=== PATIENT | male | born 1995 | race African-American/Black ===

== ENCOUNTER 2017-03-23 12:33 | Emergency (ER) | payer BC | END 2017-03-23 16:05 | disposition home or self-care (01) | LOC: SED 12:33 | DX: R51 Headache (principal); R11.0 Nausea; H53.8 Other visual disturbances | CPT/HCPCS: 96361; 96374; 96375; 99284; J0780; J1200 ==

== ENCOUNTER 2017-03-25 15:19 | Observation (INO) | payer BC ==
--- NOTE | ~2017-03-25 | CT23 ---
[facility] A Service of [facility] RADIOLOGY TEXT RESULTS PATIENT: SEDRICK PEARCE LOCATION: [place] [address] : [birth year] UNIT #: [id number] AGE: [address]: Zander Carrillo MD SEX: M ORDER DR: [id number] [place] [address] [place], [place] [address] [id number] I MR#: [id number] Acc #: [id number] NAME: SEDRICK PEARCE. : 1995 SEX: M STUDY DATE/TIME: 03/25/2017 22:44 UNIT: [facility] ROOM: [facility] STUDY DESCRIPTION: CT Angio Neck Attending Physician: Zander Carrillo M.D. Ordering Physician: Rajesh Andino D.O. Primary Care Physician: Primary Care Physician No MEDICAL IMAGING REPORT This report is preliminary unless electronic signature is present EXAM CT angio neck INDICATIONS Blurred vision for 3 days. Headache. FINDINGS Please see CT ANGIO HEAD report for combined text results. Dictated by... Yuan Miranda M.D. THIS IS AN ELECTRONICALLY VERIFIED REPORT Yuan Miranda M.D. at 03/26/2017 1:06 AM GILES/francisco TD: 03/26/2017 00:48 JOB #: [id number] MEDICAL IMAGING REPORT Page 1 of 1 COPY
--- NOTE | ~2017-03-25 | MR17 ---
[facility] A Service of [facility] & [facility] RADIOLOGY TEXT RESULTS PATIENT: SEDRICK PEARCE LOCATION: [facility] [id number] : [birth year] UNIT #: [id number] AGE: [address]: Jenelle Tapia MD SEX: M ORDER DR: [id number] [facility] [address] [place], [place] [address] [id number] I MR#: [id number] Acc #: [id number] NAME: SEDRICK PEARCE. : 1995 SEX: M STUDY DATE/TIME: 03/26/2017 11:04 UNIT: [facility] ROOM: [facility] STUDY DESCRIPTION: MR Brain WWo Contrast Attending Physician: Jenelle Tapia M.D. Ordering Physician: Zander Carrillo M.D. Primary Care Physician: No Primary Care Physician MRI CENTER REPORT This report is preliminary unless electronic signature is present. EXAM MRI of the brain with and without contrast dated 03/26/[address] head without contrast and CT angiogram head and neck with contrast dated 03/25/2017. HISTORY Migraine and visual changes for 3 days. It started on 03/22/2017 with severe headaches and blurred vision. It has pretty much resolved today on 03/26/2017. 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 TECHNIQUE Multisequence, multiplanar imaging of the brain was obtained with and without contrast. GFR measured greater than 60. 15 mL of MultiHance was administered intravenously. FINDINGS Age-appropriate parenchymal volume is seen. Banegas-white junction is preserved. Nonenhancing 1.3 x 1.0 x 0.8 cm cyst is noted in the right choroidal fissure along the medial aspect of the temporal lobe abutting the hippocampus and the adjacent mid brain. Vascular flow voids of the major cerebral arteries and dural venous sinuses are widely patent. Thick slices through the sella with the pituitary gland, pineal region and upper cervical spine are unremarkable. S-shaped nasal septal deviation is noted with minimal paranasal sinus mucosal thickening. Orbits and the ocular structures and mastoids do not demonstrate any significant abnormality. IMPRESSION 1. There is a right choroidal fissure benign cyst measuring 1.3 x 1.0 x 0.8 cm. Differential consideration include other benign cysts like arachnoid cysts. [facility]. [facility] A Service of [facility] & [facility] RADIOLOGY TEXT RESULTS PATIENT: SEDRICK PEARCE LOCATION: [place] [address] : [birth year] UNIT #: [id number] AGE: [address]: Jenelle Tapia MD SEX: M ORDER DR: 2. The remaining brain is unremarkable. Dictated by... Andrew Gibbs M.D. THIS IS AN ELECTRONICALLY VERIFIED REPORT Andrew Gibbs M.D. at 03/26/2017 3:38 PM CPR/aa TD: 03/26/2017 14:02 JOB #: [id number] MRI CENTER REPORT Page 1 of 1 COPY
--- NOTE | ~2017-03-25 | CT17 ---
[facility] A Service of [facility] RADIOLOGY TEXT RESULTS PATIENT: SEDRICK PEARCE LOCATION: [facility]10-22 : [birth year] UNIT #: [id number] AGE: [address]: Zander Carrillo MD SEX: M ORDER DR: [id number] [facility] [address] [place], [place] [address] [id number] I MR#: [id number] Acc #: [id number] NAME: SEDRICK PEARCE. : 1995 SEX: M STUDY DATE/TIME: 03/25/2017 22:44 UNIT: [facility] ROOM: [facility] STUDY DESCRIPTION: CT Angio Head Attending Physician: Zander Carrillo M.D. Ordering Physician: Rajesh Andino D.O. Primary Care Physician: Primary Care Physician No MEDICAL IMAGING REPORT This report is preliminary unless electronic signature is present EXAM CTA head and neck INDICATIONS Blurred vision for [address]. [address] angiography of the head and neck utilizing 100 mL Isovue-370 IV contrast. Coronal and sagittal 3-D MIP reconstructions were obtained. Volume-rendered and surface-rendered reconstructions were performed. Curved-planar reconstructions of the great vessels were also acquired and reviewed. This CT exam was performed with one or more of the following radiation dose reduction techniques: Automatic exposure control, adjustment of mA and/or kV according to patient size, and iterative reconstruction. COMPARISON CT head 03/25/2017. FINDINGS CTA NECK: Evaluation for a significant stenosis is based upon the NASCET criteria. There is a normal three-vessel aortic arch. The arch vessels are widely patent. Both common carotid arteries and the internal carotid arteries are widely patent. No evidence of a significant stenosis. Vertebral arteries are patent. CTA HEAD: The intracranial internal carotid arteries are widely patent. The middle cerebral arteries and the anterior cerebral arteries are also widely patent. Anterior communicating artery is normal. The posterior communicating arteries are not clearly identified. The vertebrobasilar [facility] A Service [facility] RADIOLOGY TEXT RESULTS PATIENT: SEDRICK PEARCE [facility] [id number] : [birth year] UNIT #: [id number] AGE: [address]: Zander Carrillo MD SEX: M ORDER DR: artery and the posterior cerebral arteries are widely patent. No evidence of a significant stenosis, thrombosis, or aneurysm. No dural venous thrombus. IMPRESSION 1. Negative CTA of the head and neck. Dictated by... Yuan Miranda M.D. THIS IS AN ELECTRONICALLY VERIFIED REPORT Yuan Miranda M.D. at 03/26/2017 1:06 AM GILES/francisco TD: 03/26/2017 00:46 JOB #: [id number] MEDICAL IMAGING REPORT Page 1 of 1 COPY
--- NOTE | ~2017-03-25 | CO ---
Unit #: [id number] #: [id number] Patient: SEDRICK PEARCE [id number] [facility] [address] [place], [place] [address] [id number] I MR#: [id number] NAME: SEDRICK PEARCE ROOM: 552 Age: 21 Sex: M Admission Date: 03/25/2017 : 1995 Attending Physician: Jenelle Tapia M.D. Primary Care Physician: No Primary Care Physician Consultation Date: 03/26/2017 CONSULTATION REPORT PRIMARY CARE PHYSICIAN Patient's primary care physician is not listed. CONSULTING PHYSICIAN Dr. Zander Carrillo. REASON FOR CONSULT Headache. PATIENT IDENTIFICATION This is a 21-year-old right-handed -Wallisian male evaluated in room 552 at [facility]. SOURCE OF INFORMATION Obtained from the patient and the patient's grandmother at the beside as well as the medical record. HISTORY OF PRESENT ILLNESS This is a very pleasant 21-year-old -Wallisian male with no significant past medical history of any chronic medical conditions. He presents to [facility] with complaints of headache. He apparently has been having a headache with migrainous symptoms ongoing since about Thursday, gradual onset but worsening to the point that he actually came to the ER on March 23 and then returned on March 25 as he was not getting any better. He complains that it got so severe and that he was having some blurred vision in both eyes that he became concerned and came to the hospital. He denies any infectious symptoms. He states he felt a little warm one night but that resolved. He reports he has had some nausea but no vomiting. He has had sensitivity to light and sound. He reports headache as bifrontal with throbbing behind his eyes. He denies any ocular symptoms other than blurred vision. He denies any double vision or loss of vision or amaurosis fugax, any scotoma. He denies any recent illness or injury, change in weight or routine, or change in medications. He does admit, however, that he has not been sleeping well. He stays up late at night "zac" and he admits he drinks an excessive amount of caffeine. When I tried to pinpoint how much, he states "I drink a lot." He also admits to excessive chocolate consumption and lack of exercise. He has had some headaches in the last few weeks and he says he has had a migraine in the past but reports that he does not typically get headaches. He states he came to the ER because this one was unrelenting with no relief. In the ER, he received Reglan, Benadryl, and Decadron and he states the symptoms have fully resolved and that he is now back to his baseline. He has been given orders for p.r.n. morphine but has not requested any. He states he feels back to his baseline and wishes Unit #: [id number] #: [id number] Patient: SEDRICK PEARCE to go home. He denies any focal neurologic symptoms, any stroke symptoms, focal weakness, paraesthesia, loss of consciousness or loss of awareness, shortness of air, chest pain, palpitations, facial symptoms, cranial nerve abnormalities, or vision changes other than blurred vision which is now resolved. He denies any neck pain or meningismus or any recent illness or injury. He does have a strenuous job. 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 His urine tox screen was negative in the ER. His CT of the head without contrast showed no acute intracranial findings but did show an area of about 0.8 cm to 1.2 cm. He has a density collection along the medial margin of the right temporal lobe. Thus, he was recommended for further admission to an observation status and for further evaluation. Dr. Levine was consulted and spoke with the ED with request for CT angiogram of the head and neck and MRI of the brain which was ordered and done. CT angiogram is unremarkable for any aneurysm and is essentially negative with intracranial and extracranial vessels widely patent. MRI of the brain was done. It does show a 1 x 1.3 x 0.8 cm right choroidal fissure mass, likely benign. Consider arachnoid cyst. The patient has not had any seizure activity or any focal neurologic deficits. His lab workup has been essentially unremarkable with the exception of an elevated ESR of 21. He states he is ready to go home and that he feels at his baseline. The patient denies any exacerbating or alleviating factors otherwise unless as discussed above which includes photophobia and phonophobia. PAST MEDICAL HISTORY None. PAST SURGICAL HISTORY None. HOME MEDICATIONS None. ALLERGIES No known drug allergies. REVIEW OF SYSTEMS A 14-point review of systems was done. Pertinent positives were as discussed above, otherwise negative. SOCIAL HISTORY The patient is a lumber material handler during the day at [employer]. He denies tobacco use, alcohol use, or illicit drug use. His urine tox screen is negative. He does have excessive caffeine use and has poor sleep hygiene. He states he stays up late "zac" and does not get good sleep. He is essentially pretty sedentary when not at work and plays video games in his spare time at home. PHYSICAL EXAMINATION VITAL SIGNS: Temperature 98.1. He has been afebrile here. Pulse 74, respirations 18, blood pressure 117/67, blood pressure in the ER was 117/67. He has been normotensive. Oxygen saturation 98% on room air. Height 5 feet 3 inches, weight 265 pounds, BMI 47. NEUROLOGIC: The patient is awake, alert, and oriented to person, place, time, as well as, events. No right/left confusion. No finger agnosia. No aphasia, dysarthria, or apraxia. CRANIAL NERVES: Demonstrates full kirkland of vision. Eyes are conjugate without ptosis or nystagmus. Extraocular movements are intact. Sensation Unit #: [id number] #: [id number] Patient: SEDRICK PEARCE W of the face and scalp is intact. Strength of muscles of facial expression is intact. Hearing is intact to finger rub and conversation. Tongue is midline. Uvula is midline. Palate elevation is normal. Head turning and shoulder shrug is unremarkable. His neck is supple. No meningismus noted. MOTOR: He demonstrates normal bulk and tone. Strength is equal 5/5 in all extremities. SENSORY: Intact soft touch and pinprick sensation. No extinction. GAIT: Normal. Romberg deferred. REFLEXES: Reflexes 1/4. Toes were equivocal. COORDINATION: Completely unremarkable. DIAGNOSTIC STUDIES LABORATORY: Sed rate 21. Urine tox screen negative. BMP negative. PT 11.4, INR 1.1, PTT 26. CBC shows a white count of 8.7, hemoglobin 14.8, hematocrit 45.7, platelet count 236,000. IMAGING: CT of the head without contrast on March 25, 2017: No acute intracranial findings. A 0.8 cm x 1.2 cm CSF density collection along the medial margin of the right temporal lobe. Please see report. CT angiogram of the head and neck done on March 25, 2017: Negative. MRI of the brain: Full dictated report is pending. Imaging reviewed. Voice clip noted and discussed with Dr. Levine. Redemonstrated area right choroidal fissure benign cyst. Please see full dictated report. IMPRESSION 1. Migraine: Resolved. 2. Abnormal MRI of the brain with right choroidal fissure benign cyst observed: Asymptomatic. Followup with outpatient neurology. 3. Morbid obesity. 4. Nonsmoker. PLAN I discussed with the patient and his grandmother at the bedside with the patient's permission. He is at his baseline. He does not appear toxic or infectious. His neurologic exam is completely unremarkable. He states his headache and symptoms have resolved, most likely primary headache with migrainous qualities. He admits that he has not been sleeping well and has been drinking "a lot of caffeine" to stay awake for zac. I discussed with the patient regarding lifestyle changes to help with migraine management. I also discussed MRI results with the patient with family at the bedside and discussed imaging with Dr. Levine. He is to followup with outpatient neurology. We will give him followup with Dr. Jamal Corrigan in four to eight weeks for followup of MRI findings which at this time are asymptomatic and he is to call for any focal neurologic changes or new symptoms or any seizure activity. At this time, will hold off any preventative therapy for migraines as he does not get these routinely, but may consider outpatient preventative medication if he has increase in frequency of events. Certainly, lifestyle changes should be tried first including exercise and tapering caffeine intake and working on good sleep hygiene. Patient agrees and wishes to be discharged today. Okay to discharge per neurology pending evaluation by admitting physician. Please call for any questions or issues. We thank you very much for allowing us to assist in the care of this patient. Unit #: [id number] #: [id number] Patient: SEDRICK PEARCE Dictated by... Maryann Jj A.P.R.N. for Mehran Li/soledad TD: 03/26/2017 16:21 JOB #: [id number] CONSULTATION REPORT Page 1 of 1 X Maryann Jj APRN CONSULTATION REPORT
--- NOTE | ~2017-03-25 | BMI ---
[facility] Nutrition Therapy DATE: 03/26/17 Patient: SEDRICK PEARCE Physician: JESSICA Address: [address] [address] [facility] Room/Bed: [address] [place] [address], Zip: [place] [address] Admit Date: 03/25/17 Date of : [birth year] Height: 5 3 Weight: 265 120.4 HIGH BMI NOTE: DX: 21 Y.O. FEMALE ADMITTED FOR HEADACHE ANTHROPOMETRICS: 5'3", WT: 265# (120 KG), BMI: 46.9 DIET: REGULAR RECOMMENDATIONS: 1. RECOMMEND TO CHANGE CURRENT DIET ORDER TO HH + CC TO PROMOTE GRADUAL WEIGHT LOSS TOWARDS HEALTHY BMI (19.0-25.0) OR +/-10%IBW RD WILL F/U PER PROTOCOL Respectfully, ARAM GENAO MS, RD, LD [facility] cc: client file
--- NOTE | ~2017-03-25 | CT71 ---
[facility] A Service of [facility] & [facility] RADIOLOGY TEXT RESULTS PATIENT: SEDRICK PEARCE LOCATION: [place] [address] : [birth year] UNIT #: [id number] AGE: [address]: Jenelle Tapia MD SEX: M ORDER DR: [id number] [facility] [address] [place], [place] [address] [id number] I MR#: [id number] Acc #: [id number] NAME: SEDRICK PEARCE. : 1995 SEX: M STUDY DATE/TIME: 03/25/2017 18:32 UNIT: [facility] ROOM: 65938 STUDY DESCRIPTION: CT Head Wo Contrast Attending Physician: Zander Carrillo M.D. Ordering Physician: Rajesh Andino D.O. Primary Care Physician: Primary Care Physician No MEDICAL IMAGING REPORT This report is preliminary unless electronic signature is present EXAM CT brain without contrast HISTORY Visual disturbance and headache for 3 days. Dizzy. TECHNIQUE This CT exam was performed with one or more of the following radiation dose reduction techniques: automatic exposure control, adjustment of mA and/or kV according to patient size, and iterative reconstruction. FINDINGS CT brain without contrast demonstrates no intracranial hemorrhage or edema. There is a rounded 0.8 cm x 1.2 cm CSF density in the medial margin of the right temporal lobe. This could be developmental, and incidental, but further evaluation with MRI brain is recommended, unless there are older outside studies to document long-term stability. No focal atrophy or extraaxial fluid collection. IMPRESSION 1. No acute intracranial findings. 2. 0.8 cm x 1.2 cm CSF density collection along the medial margin of the right temporal lobe. This could be incidental and developmental. However, followup MRI brain should be considered, unless there are older outside studies to document long-term stability. Cystic mass is a differential consideration. Remainder of the brain is negative. Dictated by... Elver Coleman M.D. THIS IS AN ELECTRONICALLY VERIFIED REPORT Elver Coleman M.D. at 03/26/2017 2:00 PM [facility] A Service of [facility] & [facility] RADIOLOGY TEXT RESULTS PATIENT: SEDRICK PEARCE LOCATION: [facility] 552-01 : [birth year] UNIT #: [id number] AGE: [address]: Jenelle Tapia MD SEX: M ORDER DR: BESSY/falguni TD: 03/25/2017 22:31 JOB #: [id number] MEDICAL IMAGING REPORT Page 1 of 1 COPY
--- NOTE | ~2017-03-25 | DS ---
Unit #: [id number] #: [id number] Patient: SEDRICK PEARCE [id number] [address] [address] [id number] I MR#: [id number] NAME: SEDRICK PEARCE. ROOM: [facility] Age: 21 Sex: M Admission Date: 03/25/2017 : 1995 Discharge Date: 03/26/2017 Attending Physician: Jenelle Tapia M.D. Primary Care Physician: No Primary Care Physician DISCHARGE SUMMARY SHORT-STAY SUMMARY DISCHARGE DIAGNOSES 1. Migraine headache which is resolved. 2. Abnormal MRI of the head showing right choroidal fissure benign cyst. Status post neurology evaluation, stable to be discharged with outpatient followup with neurology. CONSULTS DONE THIS HOSPITAL STAY Dr. Levine, neurology. LABS AND DIAGNOSTICS AND PROCEDURES DONE THIS HOSPITAL STAY 1. CT angio of the head and neck was unremarkable. 2. MRI showed a benign cyst as above. HISTORY OF PRESENT ILLNESS AND HOSPITAL STAY Patient is a 21-year-old gentleman with no known medical history or issues previously, started experiencing some migraine headaches since Thursday, was seen at the urgent care, was treated there and discharged. However, his symptoms got worse with the increasing photosensitivity and headache and decided to come to emergency room. In the emergency room CT of the head was done which showed a 0.8 cm x 1.2 cm CSF sensitivity collection along the medial margin of the right temporal lobe which was actually followed up with the MRI and MRI showed a right choroidal fissure benign cyst measuring 1.3 x 1 x 0.8 cm. Again benign cyst, per Neurology stable to be discharged, was treated with the symptomatic management which included pain medication. Currently his headache resolved. His photosensitivity resolved. Patient is eager to be discharged. Again status post evaluation per neurology and okay for the discharge. Patient did not have any other symptoms other than headache. There was no fever, chills, chest pain, shortness of air, headache, dizziness, nausea, vomiting or diarrhea so a 12-point review of systems on this patient is basically negative except as above. PAST MEDICAL HISTORY None. PAST SURGICAL HISTORY Appendectomy. HOME MEDICATIONS None. ALLERGIES Unit #: [id number] #: [id number] Patient: SEDRICK PEARCE No known drug allergies. SOCIAL HISTORY No history of tobacco, alcohol or illicit drugs. FAMILY HISTORY Unremarkable. PHYSICAL EXAMINATION GENERAL: On the physical exam patient is a 21-year-old obese male not in acute distress. VITAL SIGNS: BP 97/60. Heart rate 76. Respirations 18. Temperature 98.3. HEENT: Head is atraumatic. Pupils equal, round and reactive to light and accommodation. Extraocular muscles intact. Oropharynx clear. NECK: Supple. No mass. No JVD. No bruits. CHEST: Clear to auscultation bilaterally. CARDIOVASCULAR EXAM: S1, S2. No murmurs. ABDOMEN: Obese, soft, nontender, nondistended. EXTREMITIES: Lower extremities without any cyanosis, clubbing or edema. NEUROLOGIC: Patient grossly intact. No focal deficits. DIAGNOSTIC STUDIES LABORATORY: Chemistry and CBC both unremarkable. Tox screen negative. IMAGING: CT and MRI as above. ASSESSMENT AND PLAN 1. Migraine headaches: Status post neurology evaluation, resolved, stable to be discharged home. Will discharge on some p.r.n. Percocet. 2. Right choroidal fissure benign cyst: Outpatient follow up with neurology. 3. Obesity: Counseled on the importance of losing the weight. DISCHARGE MEDICATIONS Percocet 5/325 one tablet p.o. q.4-6 h. p.r.n. for pain. DISPOSITION Going home. FOLLOWUP Follow up with: 1. The primary care physician in two to three days. 2. Neurology as an outpatient. Dictated by... Zeeshan Maurice M.D. OC/ciro TD: 03/26/2017 21:09 JOB #: [id number] Unit #: [id number] #: [id number] Patient: SEDRICK PEARCE DISCHARGE SUMMARY Page 1 of 1 X Zeeshan Maurice MD DISCHARGE SUMMARY
[2017-03-25 18:43] LABS: BASOPHIL% 0.5 % (0-2.5); EOSINOPHIL# 0.2 X10e3 (0-0.7); HEMATOCRIT 45.7 % (38.0-50.0); HEMOGLOBIN 14.8 gm/dL (13.0-16.0); MEAN CELL VOLUME 86.2 FL (83-96); MEAN CORPUSCULAR HEMOGLOBIN 27.8 PG (28-34); MEAN CORPUSCULAR HGB CONC 32.3 g/dL (30-36); MONOCYTE# 1.6 X10e3 (0-1.0); NEUTROPHIL# 4.9 X10e3 (1.5-7.1); NEUTROPHIL% 56.5 % (40-75); PLATELET COUNT 236 X10e3 (140-420); RED BLOOD COUNT 5.31 X10e (3.90-5.60); RED CELL DISTRIBUTION WIDTH 15.5 % (11.0-15.5); WHITE BLOOD COUNT 8.7 X10e3 (4.0-10.5)
[2017-03-25 18:46] LABS: DIFF IND NO
[2017-03-25 18:52] LABS: INR 1.1; PROTHROMBIN TIME (PATIENT) 11.4 SECONDS (10.0-11.7)
[2017-03-25 18:56] LABS: ALBUMIN SERUM 4.2 g/dL (3.5-5.0); BILIRUBIN, DIRECT 0.1 mg/dL (0.0-0.2); BILIRUBIN,TOTAL 1.1 mg/dL (0.2-2.0); BUN/CREATININE RATIO 17.5; CALCIUM SERUM 9.2 mg/dL (8.4-10.2); CREATININE SERUM 0.8 mg/dL (0.6-1.4); GLOM FILT RATE Estimated 150.2 mL/min (>60); PROTEIN TOTAL SERUM 7.9 g/dL (6.0-8.3)
[2017-03-25 19:55] LABS: AMPHETAMINE NEG (NEG); BARBITURATES NEG (NEG); BENZODIAZEPINES NEG (NEG); COCAINE NEG (NEG); MARIJUANA NEG (NEG); OPIATES NEG (NEG); TRICYCLIC ANTIDEPRESSANTS NEG (NEG); U METHADONE NEG (NEG)
[2017-03-26 01:22] LABS: CREATININE SERUM 0.8 mg/dL (0.6-1.4); GLOM FILT RATE Estimated 150.2 mL/min (>60)
[2017-03-26] MEDS ORDERED: PERCOCET5/325 PO (18:18)
== END 2017-03-26 18:52 | disposition home or self-care (01) | DRG 103 ==
LOC: CED 15:19 → C5B 21:20 → CEDOF 21:20 → C5B 21:42 → CED 21:42 → C5B 23:39 → CEDOF 23:39 → C5B 03-26 18:52
PROVIDERS: Emergency Medicine; Internal Medicine
DX: G43.909 Migraine, unspecified, not intractable, without status migrainosus (principal); G93.0 Cerebral cysts; E66.01 Morbid (severe) obesity due to excess calories
CPT/HCPCS: 36415; 70450; 70496; 70498; 70553; 80048; 80076; 80307; 82565; 85025; 85610; 85652; 85730; 96361; 96374; 96375; 99284; A9577; G0378; J1100; J1200; J2765; Q9967